=== PATIENT | male | born 1950 | race Hispanic/Latino ===

== ENCOUNTER 2021-11-22 11:00 | Observation (INO) | payer OTHER ==
[2021-11-22 11:52] VITALS: BMI 30.1
[2021-11-22] MEDS ORDERED: ACETAMINOPHEN 500 MG TAB PO PRN (11:54)
[2021-11-22 14:36] VITALS: O2SAT 96
[2021-11-22 16:41] VITALS: BP 125/72; TEMP 97.3
--- NOTE | 2021-11-22 21:29 | P.SSS ---
Patient History Date of Service: 11/22/21 Reason for admission: chest pain History of Present Illness: 71yo M, PMH: HTN [facility]ed [facility] with [facility]. Patient had just returned home from dropping his family member off early ~5am when he began having substernal chest pain/pressure. He reports multiple similar but much milder episodes over the last several months. His brother recently and chest pain began when he learned of his brother's . Pain is not worsened or alleviated by anything in particular. Denies any cardiac history, no recent illness, no change in medications recently. Reports prior history of acid reflux but has been much better lately and ~6 months since he last had to take TUMS. On presentation to ER, his labs were unremarkable, normal troponin, EKG with t-wave inversions in leads II,III, aVF, no prior EKG to compare it to. Patient was transferred to our facility for ACS rule out. ~20yr smoking history decades ago, and was using chewing tobacco up until ~2 months ago. Allergies No Known Allergies Allergy (Unverified 11/22/21 12:07) Home Medications: Losartan Potassium [Cozaar*] 50 mg PO DAILY 11/22/21 - Past Medical/Surgical History Has patient received pneumonia vaccine in the past: No -: htn Past Surgical History: Patient denies surgical history - Family History Brother -: Heart disease - Social History Smoking Status: Former smoker Alcohol use: Yes Place of Residence: Home Review of Systems 10-point ROS is otherwise unremarkable Physical Examination - Vital Signs Temperature: 97.3 F Blood Pressure: 125/72 Pulse: 55 Respirations: 14 Pulse Ox (%): 98 - Physical Exam General: Alert, In no apparent distress, Oriented x3 HEENT: EOMI, Sclerae nonicteric Neck: No LAD Respiratory: Clear to auscultation bilaterally, Normal air movement Cardiovascular: No edema, Regular rate/rhythm, No murmurs Gastrointestinal: Soft and benign, Non-distended, No tenderness Musculoskeletal: No contractures, No tenderness Integumentary: No breakdown, No significant lesion Neurological: Normal speech, Normal affect - Studies Laboratory Data (last 24 hrs) 11/22/21 12:22: Triglycerides 273 H, Cholesterol 187, HDL Cholesterol 42, Cholesterol/HDL Ratio 4.45 Treatment Summary: Patient presented to [facility] with chest pain. Initial EKG was without ST de pressions/elevations, did have t-wave inversions in II,III,avF. Chest x-ray was clear. Labs were otherwise unremarkable. Patient was transferred to our facility for Cardiology evaluation and ACS rule out. Patient's troponins remained negative. Repeat EKG on arrival was normal, without t-wave inversions. Cardiology deemed patient stable for discharge home, with close follow up in the office for echocardiogram and stress testing. No changes to medications on discharge. - Disposition Disposition: ROUTINE DISCHARGE Condition: GOOD Diet: AHA Activity: Ad kalin Time Spent Managing Pts Care (In Minutes): 45
[2021-11-23] MEDS ORDERED: ENOXAPARIN 40 MG/0.4 ML SQ SCH (09:00)
[2021-11-23] MEDS ORDERED: ASPIRIN EC 81 MG TAB PO SCH (09:00)
--- NOTE | 2021-11-23 10:40 | CON ---
Date of Consultation: 11/22/2021 Reason For Consultation: Chest pain. History Of Present Illness: Mr. Mchugh is a -[id number], very healthy male. Has a history of hypertension for which he takes lisinopril. Has a strong family history of heart disease on his b rother's side and his father's side in the 60s. Went to [place] with atypical chest pain, right-sided, right upper shoulder, radiating to the back without any nausea, vomiting, diaphoresis, PND, orthopne a, pedal edema, palpitation, or syncope. Denied any fever or chills. His workup at [place] was normal . His EKG is normal. He was transferred here for further workup. He is asymptomatic now. His symp toms were nonexertional. Past Medical History: As stated above. Allergies: NONE. Review of Systems: Negative. Social History: Negative. Family History: Positive. Medications: At home include lisinopril. Physical Examination: Vital Signs: Stable, afebrile. HEENT: Negative. Neck: Supple with no bruit, lymphadenopathy, JVD, or thyromegaly. Chest: Clear to auscultation and percussion. Cardiac: Revealed a regular rhythm and rate. No murmurs, gallops, or rubs. Abdomen: Benign. Extremities: Revealed no clubbing, cyanosis, or edema. Diagnostic Data: All normal. Impression And Plan: Atypical chest pain in a patient with history of hypertension, strong family hi story of heart disease. Myocardial infarction ruled out. I feel comfortable with him going home. I will make arrangements for him to have an outpatient echocardiogram and an MPI, and I will see him a fter that. I will continue his lisinopril at home for now. KARINE/STEWART Voice ID: [id number] Report ID: [id number]
== END 2021-11-22 18:18 | disposition home or self-care (01) ==
LOC: 4TH 11:24
PROVIDERS: ADMIT Hospitalist; ATTEND Hospitalist
DX: R07.9 Chest pain, unspecified (principal); I10 Essential (primary) hypertension; K21.9 Gastro-esophageal reflux disease without esophagitis; Z87.891 Personal history of nicotine dependence; Z82.49 Family history of ischemic heart disease and other diseases of the circulatory system
CPT/HCPCS: 36415; 80061; 84484 ×2; 94760; G0379; G0378